=== PATIENT | female | born 1985 | race African-American/Black ===

== ENCOUNTER 2020-11-30 10:16 | Emergency (ER) | payer MEDICAID ==
[~2020-11-30] VITALS: Ht 160 cm; Wt 59.0 kg
[2020-11-30] MEDS ORDERED: FAMOTIDINE 20MG/2ML VIAL IV STA (10:48)
[2020-11-30] MEDS ORDERED: KETOROLAC 30MG/ML VIAL IV STA (10:48)
[2020-11-30] MEDS ORDERED: SODIUM CHLORIDE 0.9% 1,000 ML IV ONE (11:00)
[2020-11-30 11:25] LABS: BASOPHILS % 0.5 % (0.0-2.0); EOSINOPHILS % 2.8 % (0.0-5.0); HEMATOCRIT. 40.9 % (36.0-48.0); HEMOGLOBIN. 13.8 g/dL (12.0-16.0); LYMPHOCYTES % 28.1 % (20.0-50.0); MEAN PLATELET VOLUME 8.7 fl (7.4-10.4); MONOCYTES % 9.4 % (2.0-8.0); NEUTROPHILS % 59.2 % (40.0-76.0); PLATELET 202 x1000/uL (130-400); RED CELL DISTRIBUTION WIDTH 13.3 % (11.6-14.6)
[2020-11-30 11:27] LABS: CHLORIDE 109 mEq/L (98-107)
[2020-11-30 11:32] LABS: INR 1.1; PROTHROMBIN TIME 11.4 sec (9.6-11.0)
[2020-11-30 12:51] LABS: CLARITY URINE CLEAR (CLEAR); COLOR URINE YELLOW (YELLOW); KETONES URINE NEGATIVE (NEGATIVE); LEUKOCYTE ESTERASE URINE NEGATIVE (NEGATIVE); NITRITE URINE NEGATIVE (NEGATIVE); OCCULT BLOOD URINE 3+ (NEGATIVE); PROTEIN URINE NEGATIVE (NEGATIVE); SPECIFIC GRAVITY URINE 1.007 (1.005-1.030); UROBILINOGEN URINE 0.2 E.U./dL (0.2-1.0)
[2020-11-30 13:40] VITALS: BP 128/82
[2020-11-30] MEDS ORDERED: OMEP20CA14 MT (13:53)
[2020-11-30] MEDS ORDERED: NITR-87 MT (13:53)
== END 2020-11-30 14:14 | disposition home or self-care (01) ==
LOC: ER 10:16
DX: R10.12 Left upper quadrant pain (principal); J45.909 Unspecified asthma, uncomplicated
CPT/HCPCS: 36415; 71045; 76705; 80053; 81003; 81025; 83690; 85025; 85610; 93005; 96361; 96374; 96375; 99285; J1885; J3490; J7030

== ENCOUNTER 2021-01-28 21:14 | Emergency (ER) | payer MEDICAID ==
[~2021-01-28] VITALS: Ht 160 cm; Wt 59.0 kg
[~2021-01-28 21:14] MED LIST: NITR-87 MT; OMEP20CA14 MT
[2021-01-28 21:21] VITALS: BP 127/74
== END 2021-01-29 | disposition left against medical advice (07) ==
LOC: ER 21:14
DX: R51.9 Headache, unspecified (principal); Z53.21 Procedure and treatment not carried out due to patient leaving prior to being seen by health care provider

== ENCOUNTER 2021-09-26 16:24 | Emergency (ER) | payer MEDICAID ==
[~2021-09-26] VITALS: Ht 160 cm; Wt 59.0 kg
[2021-09-26 16:57] VITALS: BP 132/91
[2021-09-26] MEDS ORDERED: IBUPROFEN 400MG TABLET PO ONE (17:45)
== END 2021-09-26 20:36 | disposition left against medical advice (07) ==
LOC: ER 16:24
DX: M79.645 Pain in left finger(s) (principal); M79.89 Other specified soft tissue disorders
CPT/HCPCS: 73140; 99283